=== PATIENT | male | born 1985 | race Caucasian/White ===

== ENCOUNTER 2016-12-02 20:00 | Emergency (ER) | payer BC ==
[~2016-12-02 20:00] MED LIST: DARVOCET-N 1001 TAB PO; KEFLEX500 MG PO; VENTOLIN17 GM
[2016-12-02] MEDS ORDERED: CLARITIN10 M6 PO (20:22)
[2016-12-02] MEDS ORDERED: RANITIDINE HCL (20:22)
== END 2016-12-02 21:02 ==
LOC: EDMED 20:00
DX: T18.128A Food in esophagus causing other injury, initial encounter (principal)